=== PATIENT | male | born 1970 | race Two or more races ===

== ENCOUNTER → 2017-09-02 | Outpatient (CLI) | payer OTHER ==
[2016-01-05 11:01] VITALS: BMI 38.2
[~2017-09-02] MED LIST: ACE325 PO; AZIT-18 PO; CEP500 PO; CETI-176 PO; CIP500 PO; CIPR-344 PO; CLI150 PO; CYCL10TA29 PO; DAYQUIL; DOCU-202 PO; FLUT16SP19; HYDR-2966 PO; LEV500 PO; LEVO750T11 FT; LEVO750T25 PO; LOR5/325 PO; METR-1 PO; METR250 PO; NYST100040 PO; ONDA4TAB PO; OXYC-865 PO; PER PO; PRED-1 PO; PRED-420 PO; PROM-110 PO; SULF-198 PO; SULF1TAB24 PO; TRAM-420 PO
--- NOTE | 2017-09-02 16:44 | RADIOLOGY IMAGING REPORT ---
FACILITY: [facility] PATIENT NAME: Jewel Baird : 1970 MR: [id number] V: [id number] EXAM DATE: ORDERING PHYSICIAN: HONORIO BARRON TECHNOLOGIST: Location: [facility] Patient: Jewel Baird : 1970 Visit/Account:[id number] Date of Sevice: 09/02/2017 Technique: CHEST PA AND LAT HISTORY: Bronchitis COMPARISON: None available Findings: Vague prominence of the bronchovascular lung markings are noted as well as mild central per ibronchial thickening. No lobar airspace consolidation. The cardiac silhouette is unremarkable. IMPRESSION: 1. Findings suggestive of bronchitis, asthma or chronic tobacco usage. Report Dictated By: New Mark DO at 09/02/2017 4:38 PM Report E-Signed By: Nwe Mark DO at 09/02/2017 4:39 PM WSN:[id number]
== END ==
LOC: RAD 16:05
PROVIDERS: ATTEND Family Medicine
DX: J02.9 Acute pharyngitis, unspecified (principal)
CPT/HCPCS: 71046

== ENCOUNTER → 2018-04-28 | Outpatient (CLI) | payer BC, OTHER ==
[2016-01-05 11:01] VITALS: BMI 38.2
[2018-04-28 15:00] LABS: PLATELET COUNT, AUTOMATED 231 K/uL (150-450)
== END ==
LOC: LAB 10:15
PROVIDERS: ATTEND Surgery
DX: Z01.812 Encounter for preprocedural laboratory examination (principal); I10 Essential (primary) hypertension; R10.9 Unspecified abdominal pain; Z87.19 Personal history of other diseases of the digestive system
CPT/HCPCS: 36415; 82310; 82374; 82435; 82565; 82947; 84132; 84295; 84520; 85025

== ENCOUNTER → 2018-05-08 | Outpatient (CLI) | payer OTHER ==
[2016-01-05 11:01] VITALS: BMI 38.2
[~2018-05-08] MED LIST changes: +IOPAMIDOL 76% 75 ML INFUS BTL 75 ML ONE
--- NOTE | 2018-05-08 10:09 | RADIOLOGY IMAGING REPORT ---
FACILITY: [facility] [place] PATIENT NAME: Jewel Baird : 1970 MR: [id number] V: [id number] EXAM DATE: ORDERING PHYSICIAN: BRODIE CHAMPAGNE TECHNOLOGIST: Location: [facility] [place] Patient: Jewel Baird : 1970 Visit/Account:[id number] Date of Sevice: 05/08/2018 ABDOMEN/PELVIS WITH CONTRAST HISTORY: Diverticulitis abdominal pain. TECHNIQUE: CT abdomen and pelvis 100 cc of Isovue 370 IV. One of the following dose optimization te chniques was utilized in the performance of this exam: automated exposure control; adjustment of the mA and/or kV according to the patient's size; or use of an iterative reconstruction technique. Speci fic details can be referenced in the facility's radiology CT exam operational policy. COMPARISON: None. FINDINGS: Liver/gallbladder: The liver demonstrates normal enhancement. Gallbladder is unremarkable. Spleen: Normal. Adrenals: Normal. Pancreas: Normal enhancement without evidence of mass. Kidneys/: The right and left kidney demonstrate normal enhancement without evidence of hydronephro sis or mass. Both ureters are normal. Pelvis: Urinary bladder is normal. GI: Several small diverticula are seen on the distal colon. There is no evidence of pericolonic fat stranding or inflammation. Small bowel and stomach are normal. There is a benign appearing calcifi cation along the root of the mesentery. Vessels/spaces/nodes: Negative. Bones/soft tissues: There are no lytic or blastic bone lesions. Soft tissues are normal. Visualized lung bases: Clear. IMPRESSION: 1. Mild diverticular changes on the distal colon. No evidence of diverticulitis. 2. Benign-appearing calcification in the root of the mesentery. 3. No evidence of acute pathology in the abdomen or pelvis. Report Dictated By: Frank Gordon at 05/08/2018 9:33 AM Report E-Signed By: Frank Gordon at 05/08/2018 10:05 AM WSN:[id number]
== END ==
LOC: CT 04:16
PROVIDERS: ATTEND Surgery
DX: K57.30 Diverticulosis of large intestine without perforation or abscess without bleeding (principal); K66.8 Other specified disorders of peritoneum
CPT/HCPCS: 74177; Q9967

== ENCOUNTER 2018-07-25 17:12 | Emergency (ER) | payer OTHER ==
[2016-01-05 11:01] VITALS: Wt 117.9 kg
[~2018-07-25 17:12] MED LIST changes: -IOPAMIDOL 76% 75 ML INFUS BTL 75 ML ONE
--- NOTE | 2018-07-25 17:22 | ER Report ---
History and Physical Time Seen By MD: 17:21 HPI/ROS CHIEF COMPLAINT: Allergic reaction HISTORY OF PRESENT ILLNESS: Patient is a 47-year-old male here with complaints of acute onset of diffuse full body urticarial rash without airway involvement. Patient does have a prior history of similar episodes and currently does not have epi-pens as they've . Patient reports eating within the past several hours however is uncertain what allergen he came in contact with. Patient has not taken any medications prior to arrival. Anaphylaxis kit was administered at time of arrival. REVIEW OF SYSTEMS: Constitutional: No fever, no chills. Eyes: No discharge. ENT: No sore throat. Cardiovascular: No chest pain, no palpitations. Respiratory: No cough, no shortness of breath. No wheezing or dyspnea Gastrointestinal: No abdominal pain, no vomiting. Genitourinary: No hematuria. Musculoskeletal: No back pain. Skin: Diffuse blanchable urticarial rash on torso, trunk, extremities Neurological: No headache. Allergies: Coded Allergies: aspirin (Verified Allergy, Severe, HIVES, SWELLING TO THROAT, 01/04/16) NSAIDS (Non-Steroidal Anti-Inflamma (Verified Allergy, Mild, 01/04/16) Penicillins (Verified Allergy, Mild, 01/04/16) Home Meds Active Scripts Prednisone (PREDNISONE) 50 Mg Tablet, 50 MG PO QDAY for 2 Days, #2 TAB Prov:DAVIE SORTO DO 07/25/18 Epinephrine (EPINEPHRINE) 0.3 Mg/0.3 Ml Pen.injctr, 0.3 MG IM PRN PRN for ANAPHYLAXIS, #1 PACK Prov:DAVIE SORTO DO 07/25/18 Reported Medications Tramadol Hcl (TRAMADOL HCL) 50 Mg Tablet, 50-100 MG PO BID, TAB 04/29/18 Hydrochlorothiazide (HYDROCHLOROTHIAZIDE) 25 Mg Tablet, 1 TAB PO QDAY, TAB 01/04/16 Hx Smoking: Yes (4-5/day x10 year smoking, chew 3-4 dips/dayx25 yrs) Smoking Status: Current: Every Day Smoker Hx Substance Use Disorder: No Hx Alcohol Use: No Constitutional Vital Sign - Last 24 Hours 07/25/18 07/25/18 07/25/18 07/25/18 17:16 17:24 17:26 17:27 Pulse 92 86 Resp 24 10 B/P (MAP) 142/106 (118) 164/111 (128) 164/111 Pulse Ox 94 94 O2 Delivery Room Air 07/25/18 07/25/18 07/25/18 07/25/18 17:30 17:42 17:45 17:57 Pulse 95 99 Resp 15 8 B/P (MAP) 153/110 (124) 165/104 (124) Pulse Ox 93 92 07/25/18 07/25/18 07/25/18 18:00 18:12 18:15 Pulse 96 Resp 24 B/P (MAP) 161/98 (119) 158/92 (114) Pulse Ox 90 Physical Exam General Appearance: The patient is alert, has no immediate need for airway protection and no signs of toxicity. No focal neurological deficits Eyes: Pupils equal and round no pallor or injection. ENT, Mouth: Mucous membranes are moist. No posterior oropharyngeal swelling Respiratory: There are no retractions, lungs are clear to auscultation. No wheezing Cardiovascular: Regular rate and rhythm. Gastrointestinal: Abdomen is soft and non tender, no masses, bowel sounds normal. Neurological: No focal neurological findings Skin: Diffuse urticarial rash, blanchable, raised, Nikolsky negative Musculoskeletal: Neck is supple non tender. Extremities are nontender, nonswollen and have full range of motion. DIFFERENTIAL DIAGNOSIS: After history and physical exam differential diagnosis was considered for anaphylaxis, anaphylactoid reaction, contact dermatitis Medical Decision Making ED Course/Re-evaluation ED Course Patient is a 47-year-old male here with complaints of diffuse full body rash after coming in contact with an unknown allergen. Patient has had similar episodes in the past however did not currently have any EpiPens. Patient was given epinephrine intramuscular injection, famotidine, methylprednisolone. Patient was given prescriptions for EpiPen's, 2 days of prednisone. Patient had significant improvement of symptoms and did not have airway or throat involvement. Close PCP follow-up recommended. Return precautions provided. Decision to Disposition Date: Jul 25, 2018 Decision to Disposition Time: 18:10 Depart Departure Latest Vital Signs Vital Signs Date Time Temp Pulse Resp B/P (MAP) Pulse Ox O2 Delivery O2 Flow Rate FiO2 07/25/18 18:15 158/92 (114) 07/25/18 18:12 96 24 90 07/25/18 17:26 Room Air Impression: Primary Impression: Allergic reaction Condition: Improved Disposition: HOME OR SELF-CARE Referrals: HONORIO BARRON DO (PCP) New Scripts Prednisone (PREDNISONE) 50 Mg Tablet 50 MG PO QDAY for 2 Days, #2 TAB Prov: DAVIE SORTO DO 07/25/18 Epinephrine (EPINEPHRINE) 0.3 Mg/0.3 Ml Pen.injctr 0.3 MG IM PRN PRN for ANAPHYLAXIS, #1 PACK Prov: DAVIE SORTO DO 07/25/18 Patient Instructions: General Allergic Reaction (ED) Additional Instructions: Please drink plenty of water. You may take prednisone 50 mg daily for the next 2 days. Please fill your prescription for epinephrine pens. Please return immediately she have recurrent episodes of allergic reaction. DAVIE SORTO DO Jul 25, 2018 17:22
[2018-07-25] MEDS ORDERED: ANAPHYLAXIS KIT 1 EA IVP ONE (17:25)
[2018-07-25] MEDS ORDERED: EPINEPHrine 0.3 MG SYR IM ONLY ONE (17:45)
[2018-07-25] MEDS ORDERED: FAMOTIDINE(*) 20MG/50ML PREMIX 50 ML IVPB ONE (17:45)
[2018-07-25] MEDS ORDERED: diphenhydrAMINE 50 MG/ML VIAL IVP ONE (17:45)
[2018-07-25] MEDS ORDERED: methylPREDNIS SUCC 125 MG/2ML IVP ONE (17:45)
[2018-07-25] MEDS ORDERED: EPIN0.3P3 IM (18:13)
[2018-07-25] MEDS ORDERED: PRED50TA22 PO (18:13)
[2018-07-25 18:15] VITALS: BP 158/92
== END 2018-07-25 18:24 | disposition home or self-care (01) ==
LOC: ER 17:23
DX: T78.40XA Allergy, unspecified, initial encounter (principal)
CPT/HCPCS: 96372; 96374; 96375; 99284; J0171; J1200; J2930; J3490

== ENCOUNTER → 2018-10-30 | Outpatient (CLI) | payer OTHER ==
[2016-01-05 11:01] VITALS: BMI 38.2
[~2018-10-30] MED LIST changes: +EPIN0.3P3 IM; +PRED50TA22 PO
--- NOTE | 2018-10-30 15:37 | RADIOLOGY IMAGING REPORT ---
FACILITY: [facility] PATIENT NAME: Jewel Baird : 1970 MR: [id number] V: [id number] EXAM DATE: [id number] ORDERING PHYSICIAN: HONORIO BARRON TECHNOLOGIST: Location: [facility] Patient: Jewel Baird : 1970 Visit/Account:[id number] Date of Sevice: 10/30/2018 EXAMINATION: CT Head without intravenous contrast HISTORY: Headache. TECHNIQUE: Axial images were obtained from the skull base to the vertex without intravenous contrast . Sagittal and coronal reformatted images are also submitted. One of the following dose optimization techniques was utilized in the performance of this exam: Autom ated exposure control; adjustment of the mA and/or kV according to the patient's size; or use of an i terative reconstruction technique. Specific details can be referenced in the facility's radiology C T exam operational policy. COMPARISON: None available. FINDINGS: Brain volume: Normal. Ventricles: Negative. Acute ischemic changes: None. Hemorrhage: None. Masses / edema: None. Pa-white: Negative. White matter: Negative. Vessels: Negative. Extra-axial: Negative. Calvarium / skull base: Negative. Visualized sinuses / orbits: Mild mucosal thickening in the ethmoid air cells and right maxillary si nus. Rightward nasal septal deviation. IMPRESSION: 1. Mild mucosal thickening in the ethmoid air cells and right maxillary sinus with rightward nasal se ptal deviation. 2. Otherwise normal noncontrast head CT. Report Dictated By: Kip Garcia MD at 10/30/2018 3:30 PM Report E-Signed By: Kip Garcia MD at 10/30/2018 3:34 PM WSN:[email or web address]
== END ==
LOC: CT 12:56
PROVIDERS: ATTEND Family Medicine
DX: J32.0 Chronic maxillary sinusitis (principal); J34.2 Deviated nasal septum
CPT/HCPCS: 70450